=== PATIENT | male | born 1950 | race Caucasian/White ===

== ENCOUNTER 2017-09-05 20:57 | Emergency (ER) | payer OTHER ==
[~2017-09-05] VITALS: Ht 170.2 cm; Wt 76.2 kg
[2017-09-05 21:07] VITALS: Ht 170.2 cm; Wt 76.2 kg
[2017-09-06 00:27] VITALS: BP 136/97
== END 2017-09-06 00:27 | disposition left against medical advice (07) ==
LOC: ED 20:57
DX: Z53.21 Procedure and treatment not carried out due to patient leaving prior to being seen by health care provider (principal)